=== PATIENT | male | born 1975 | race Two or more races ===

== ENCOUNTER → 2018-02-23 | Day surgery (SDC) | payer OTHER ==
[~2018-02-23] MED LIST: Cozaar PO; KEPPRA1000 MG; KEPPRA500 MG PO; LOSARTAN POTASS50 MG PO
== END | disposition home or self-care (01) ==
LOC: ADM 02-16 13:30 → AMB-ENDOS 06:45 → ADM 13:30 → AMB-ENDOS 13:30
DX: K64.8 Other hemorrhoids (principal); K63.89 Other specified diseases of intestine; Z12.11 Encounter for screening for malignant neoplasm of colon

== ENCOUNTER 2019-06-01 08:37 | Emergency (ER) | payer OTHER ==
[~2019-06-01] VITALS: Ht 170.2 cm; Wt 103.9 kg
== END 2019-06-01 09:56 | disposition home or self-care (01) ==
LOC: ER 08:37
DX: L30.8 Other specified dermatitis (principal); R21 Rash and other nonspecific skin eruption

== ENCOUNTER 2019-10-17 11:47 | Emergency (ER) | payer OTHER ==
[~2019-10-17] VITALS: Ht 86.4 cm; Wt 99.8 kg
== END 2019-10-18 17:30 | disposition home or self-care (01) ==
LOC: ER 11:47
DX: G40.89 Other seizures (principal); I10 Essential (primary) hypertension; B34.9 Viral infection, unspecified; R41.0 Disorientation, unspecified

== ENCOUNTER → 2023-08-01 | Emergency (ER) | payer OTHER ==
[~2023-08-01] VITALS: Ht 170.2 cm; Wt 102.5 kg
[~2023-08-01] MED LIST changes: +LOSARTAN-HCTZ1 EACH
== END | disposition left against medical advice (07) ==
LOC: ER 11:19
DX: M79.606 Pain in leg, unspecified (principal); Z88.0 Allergy status to penicillin

== ENCOUNTER 2023-09-19 18:34 | Emergency (ER) | payer OTHER ==
[~2023-09-19] VITALS: Ht 177.8 cm; Wt 97.5 kg
[2023-09-19 19:43] LABS: PH,URINE 5.5 (5.0-8.0); URINE APPEARANCE Clear; URINE BILIRRUBIN Negative (NEGATIVE); URINE BLOOD Negative; URINE COLOR Yellow; URINE GLUCOSE Negative (NEGATIVE); URINE LEUKOCYTE Negative; URINE NITRATE Negative; URINE PROTEIN Trace (NEGATIVE); URINE UROBILINOGEN 0.2 E.U./dl
[2023-09-19 19:44] LABS: URINE EPITHELIAL CELLS 15.3 uL (0.0-38.8); URINE RBC 3.1 uL (0.0-20.8); URINE WBC 12.6 uL (0.0-23.2)
[2023-09-19 21:02] LABS: COCAINE NEGATIVE (NEGATIVE); METHADONE NEGATIVE (NEGATIVE); OPIATES NEGATIVE (NEGATIVE); THC ( Cannabinoids) NEGATIVE (NEGATIVE)
== END 2023-09-19 19:49 | disposition left against medical advice (07) ==
LOC: ER 18:34
PROVIDERS: General Practice
DX: R55 Syncope and collapse (principal); Z88.0 Allergy status to penicillin; I10 Essential (primary) hypertension